=== PATIENT | female | born 1930 | race Caucasian/White ===

== ENCOUNTER 2020-03-20 16:42 | Emergency (ER) | payer MEDICARE ==
[~2020-03-20] VITALS: Ht 157.5 cm; Wt 56.8 kg
[~2020-03-20 16:42] MED LIST: BUSP15TA7 PO; CARI-433; DIAZ10TA4 PO; DULO-31 PO; FURO80TA87 PO; GABA-530 PO; HYDR2TAB7 PO; METH750T3 PO; ONDA-103 PO; POLY1GRA PO; POTA10CA44 PO; TRAZ-251 PO; ZOLP5TAB8 PO
[2020-03-20 16:50] VITALS: BP 158/68
--- NOTE | 2020-03-20 19:02 | NUR ---
RING SUCCESSFULLY REMOVED. PT IS NOW DC READY
== END 2020-03-20 19:17 | disposition home or self-care (01) ==
LOC: ER 16:48
DX: S60.455A Superficial foreign body of left ring finger, initial encounter (principal); G89.29 Other chronic pain; Z90.89 Acquired absence of other organs; Z90.710 Acquired absence of both cervix and uterus; Z72.89 Other problems related to lifestyle; W45.8XXA Other foreign body or object entering through skin, initial encounter; Y93.89 Activity, other specified; Y92.89 Other specified places as the place of occurrence of the external cause; Y99.8 Other external cause status
CPT/HCPCS: 99284